=== PATIENT | male | born 1985 | race African-American/Black ===

== ENCOUNTER 2018-06-08 23:21 | Inpatient (IN) | payer MEDICAID ==
[~2018-06-08] VITALS: Ht 188 cm; Wt 68.9 kg
[~2018-06-08 23:21] MED LIST: AMLO-512 PO; ASPI-1182 PO; ATOR10TA84 PO; CALC25 PO; FOLI1CAP2 PO; METO50 PO; PHOSLOC PO
[2018-06-09 00:35] LABS: BASOPHILS % (AUTO) 3.4 % (0.0-2.0); EOSINOPHILS % (AUTO) 3.7 % (1.0-6.0); HEMATOCRIT 29.2 % (41-53); HEMOGLOBIN 9.6 g/dL (13.5-17.5); LYMPHOCYTES # (AUTO) 1.8 K/uL (1.0-4.8); LYMPHOCYTES % (AUTO) 22.7 % (22.0-44.0); MEAN CORPUSCULAR HEMOGLOBIN 29.6 pg (26.0-34.0); MEAN CORPUSCULAR HGB CONC 32.7 G/dL (31.0-37.0); MEAN CORPUSCULAR VOLUME 91 fL (80-100); MONOCYTES # (AUTO) 0.7 K/uL (0.1-1.0); NEUTROPHILS # (AUTO) 4.9 K/uL (1.8-7.7); NEUTROPHILS % (AUTO) 61.2 % (40.0-70.0); PLATELET COUNT (AUTO) 427 K/uL (150-450); RED BLOOD CELL COUNT(AUTO) 3.23 MIL/uL (4.50-5.90); RED CELL DISTRIBUTION WIDTH 15.2 % (11.5-14.5)
[2018-06-09 00:49] LABS: ANION GAP 10 mmol/L (8-16); CALCIUM, TOTAL 8.8 mg/dL (8.8-10.5); CARBON DIOXIDE 31 mmol/L (22-29); CHLORIDE 98 mmol/L (98-107); CREATININE 5.76 mg/dL (0.60-1.30); GLOMERULAR FILTR. RATE CALC 14 mL/min (>60); GLUCOSE,RANDOM 82 mg/dL (70-110); POTASSIUM 4.1 mmol/L (3.5-5.1); SODIUM SERUM 139 mmol/L (136-145); UREA NITROGEN, BLOOD 13 mg/dL (7-18)
[2018-06-09 00:50] LABS: LACTIC ACID 0.8 mmol/L (0.4-2.0)
[2018-06-09 00:58] LABS: ALANINE AMINOTRANSFERASE 44 U/L (12-78); ALBUMIN 2.6 g/dL (3.4-5.0); ALKALINE PHOSPHATASE 128 U/L (46-116); ASPARTATE AMINOTRANSFERASE 28 U/L (15-37); BILIRUBIN,TOTAL 0.5 mg/dL (0.1-1.0); LIPASE 186 U/L (73-393); TOTAL PROTEIN, SERUM 6.7 g/dL (6.4-8.2)
[2018-06-09] MEDS ORDERED: LABETALOL HCL 5 MG/ML 20 ML VIAL IVP ONE ×2 (01:00)
[2018-06-09 01:22] LABS: B-TYPE NATRIURETIC PEPTIDE 4140 pg/mL (0-100)
[2018-06-09] MEDS ORDERED: FUROSEMIDE 40 MG/4 ML VIAL IVP ONE (02:00)
[2018-06-09] MEDS ORDERED: 0.9% SODIUM CHLORIDE 10 ML SYRINGE IVP PRN ×2 (02:00→05:45)
[2018-06-09] MEDS ORDERED: ACETAMINOPHEN 325 MG TABLET PO PRN ×2 (02:00→05:45)
[2018-06-09] MEDS ORDERED: ONDANSETRON HCL 4 MG/2 ML VIAL IVP PRN ×2 (02:00→05:45)
[2018-06-09 02:23] LABS: GLUCOSE,POINT OF CARE 87 MG/DL (70-110)
[2018-06-09 03:24] VITALS: BP 152/79
[2018-06-09] MEDS ORDERED: HYDROCODONE/ACETAMINOPHEN 5-325 MG TABLET PO PRN (05:45)
[2018-06-09] MEDS ORDERED: BISACODYL 10 MG RECTAL RECTAL SUPPOSITORY PR PRN (05:45)
[2018-06-09] MEDS ORDERED: MORPHINE SULFATE 2 MG/ML SYRINGE IVP PRN (05:45)
[2018-06-09] MEDS ORDERED: IPRATROPIUM BROMIDE 0.5 MG/2.5 ML NEB SOLUTION NEB PRN (05:45)
[2018-06-09] MEDS ORDERED: ALBUTEROL SULFATE 2.5 MG/0.5 ML NEB SOLUTION NEB PRN (05:45)
[2018-06-09] MEDS ORDERED: HydrALAZINE HCL 20 MG/ML VIAL IVP PRN (06:00)
[2018-06-09 07:27] LABS: BASOPHILS % (AUTO) 3.7 % (0.0-2.0); EOSINOPHILS % (AUTO) 4.1 % (1.0-6.0); HEMATOCRIT 27.2 % (41-53); HEMOGLOBIN 9.1 g/dL (13.5-17.5); LYMPHOCYTES # (AUTO) 1.2 K/uL (1.0-4.8); LYMPHOCYTES % (AUTO) 18.9 % (22.0-44.0); MEAN CORPUSCULAR HEMOGLOBIN 30.4 pg (26.0-34.0); MEAN CORPUSCULAR HGB CONC 33.6 G/dL (31.0-37.0); MEAN CORPUSCULAR VOLUME 90 fL (80-100); MONOCYTES # (AUTO) 0.6 K/uL (0.1-1.0); MONOCYTES % (AUTO) 9.3 % (2.0-9.0); NEUTROPHILS # (AUTO) 4.2 K/uL (1.8-7.7); PLATELET COUNT (AUTO) 383 K/uL (150-450); RED BLOOD CELL COUNT(AUTO) 3.01 MIL/uL (4.50-5.90); RED CELL DISTRIBUTION WIDTH 15.3 % (11.5-14.5)
[2018-06-09 07:38] LABS: ALBUMIN 2.5 g/dL (3.4-5.0); BILIRUBIN,TOTAL 0.3 mg/dL (0.1-1.0); CALCIUM, TOTAL 8.5 mg/dL (8.8-10.5); CHOL/HDL RATIO 2.1 (4.2-7.3); CREATININE 6.78 mg/dL (0.60-1.30); TOTAL PROTEIN, SERUM 6.1 g/dL (6.4-8.2)
[2018-06-09 07:41] LABS: POTASSIUM 6.1 mmol/L (3.5-5.1)
[2018-06-09 08:02] VITALS: BP 155/95
[2018-06-09] MEDS: CALCIUM ACETATE 667 MG CAPSULE PO SCH (08:23)
[2018-06-09] MEDS: HEPARIN SODIUM,PORCINE 5,000 UNITS/ML VIAL SQ SCH ×2 (08:24→20:57)
[2018-06-09] MEDS: ATORVASTATIN CALCIUM 10 MG TABLET PO SCH (08:24)
[2018-06-09] MEDS: PANTOPRAZOLE SODIUM 40 MG DR TABLET PO SCH (08:24)
[2018-06-09] MEDS: ASPIRIN 81 MG CHEWABLE TABLET PO SCH (08:24)
[2018-06-09] MEDS: VITAMIN B COMP/VIT C/FOLIC ACID CAPSULE PO SCH (08:24)
[2018-06-09] MEDS: AmLODIPine BESYLATE 10 MG TABLET PO SCH (08:24)
[2018-06-09 08:55] LABS: ABG A-A DIFF O2 54.8 mmHg (10-20.0); ABG BASE EXCESS 7.3 mmol/L (-2.0-3.0); ABG CARBOXYHEMOGLOBIN 0.6 % (0.0-1.5); ABG HCO3 30.6 mmol/L (22.0-26.0); ABG OXYGEN CONTENT 14.6 mL/dL (15.0-23.0); ABG OXYGEN SATURATION 97.5 % (95.0-98.0); ABG OXYHEMOGLOBIN 96.9 % (94.0-100.0); ABG PCO2 40 mmHg (35-45); ABG PH 7.496 (7.350-7.450); ABG TOTAL HEMOGLOBIN 10.6 G/dL (12.0-18.0); PO2, ARTERIAL BG 97.6 mmHg (92.0-100.0); SOURCE, BLOOD GAS ARTERIAL; TEMPERATURE, FAHRENHEIT, BG 97.6 FAHREN (96.0-98.6)
[2018-06-09 08:56] LABS: O2 DEVICE,BLOOD GAS CANNULA (ROOM AIR); SITE, BLOOD GAS RT RADIAL
[2018-06-09] MEDS ORDERED: EPOETIN ALFA 10,000 UNITS/ML VIAL SQ SCH (09:00)
[2018-06-09] MEDS ORDERED: 0.9% SODIUM CHLORIDE 5 ML NEB SOLUTION NEB ONE (09:00)
[2018-06-09] MEDS: CALCITRIOL 0.25 MCG CAPSULE PO SCH (09:00)
[2018-06-09] MEDS ORDERED: SODIUM CHLORIDE 0.9% 2,000 ML IV ONE (10:25)
[2018-06-09 11:42] VITALS: BP 154/108
[2018-06-09] MEDS: METOPROLOL TARTRATE 50 MG TABLET PO SCH ×2 (15:22→20:57)
[2018-06-09 16:12] VITALS: BP 153/90
[2018-06-09] MEDS ORDERED: HEPARIN SODIUM,PORCINE 1,000 UNITS/ML VIAL IVP ONE ×2 (16:28→16:30)
[2018-06-09 19:33] VITALS: BP 146/79
[2018-06-09] MEDS ORDERED: SODIUM CHLORIDE 0.9% 100 ML ONE (21:58)
[2018-06-09] MEDS ORDERED: IOVERSOL 320 MG/ML 100 ML VIAL ONE (21:58)
[2018-06-10] VITALS (7 sets, daily range): BP systolic 118–154; BP diastolic 73–108
[2018-06-10 06:30] LABS: BASOPHILS % (AUTO) 4.5 % (0.0-2.0); EOSINOPHILS % (AUTO) 9.5 % (1.0-6.0); HEMATOCRIT 31.7 % (41-53); HEMOGLOBIN 10.6 g/dL (13.5-17.5); LYMPHOCYTES # (AUTO) 1.3 K/uL (1.0-4.8); MEAN CORPUSCULAR HEMOGLOBIN 30.4 pg (26.0-34.0); MEAN CORPUSCULAR HGB CONC 33.6 G/dL (31.0-37.0); MEAN CORPUSCULAR VOLUME 91 fL (80-100); MONOCYTES # (AUTO) 0.9 K/uL (0.1-1.0); MONOCYTES % (AUTO) 14.8 % (2.0-9.0); NEUTROPHILS # (AUTO) 3.2 K/uL (1.8-7.7); NEUTROPHILS % (AUTO) 51.2 % (40.0-70.0); PLATELET COUNT (AUTO) 394 K/uL (150-450); RED CELL DISTRIBUTION WIDTH 15.2 % (11.5-14.5)
[2018-06-10 06:45] LABS: CALCIUM, TOTAL 8.6 mg/dL (8.8-10.5); CREATININE 6.8 mg/dL (0.60-1.30); MAGNESIUM 1.8 mg/dL (1.80-2.40); PHOSPHORUS 4.6 mg/dL (2.5-4.9); POTASSIUM 4.5 mmol/L (3.5-5.1)
[2018-06-10] MEDS: AmLODIPine BESYLATE 10 MG TABLET PO SCH (08:09)
[2018-06-10] MEDS: VITAMIN B COMP/VIT C/FOLIC ACID CAPSULE PO SCH (08:09)
[2018-06-10] MEDS: PANTOPRAZOLE SODIUM 40 MG DR TABLET PO SCH (08:09)
[2018-06-10] MEDS: HEPARIN SODIUM,PORCINE 5,000 UNITS/ML VIAL SQ SCH ×2 (08:09→20:32)
[2018-06-10] MEDS: ASPIRIN 81 MG CHEWABLE TABLET PO SCH (08:09)
[2018-06-10] MEDS: CALCITRIOL 0.25 MCG CAPSULE PO SCH (08:09)
[2018-06-10] MEDS: ATORVASTATIN CALCIUM 10 MG TABLET PO SCH (08:09)
[2018-06-10] MEDS: METOPROLOL TARTRATE 50 MG TABLET PO SCH ×2 (08:09→20:32)
[2018-06-10] MEDS: CALCIUM ACETATE 667 MG CAPSULE PO SCH (08:09)
[2018-06-10] MEDS: HydrALAZINE HCL 25 MG TABLET PO SCH ×2 (16:44→20:32)
[2018-06-11 04:29] VITALS: BP 155/97
[2018-06-11 07:12] VITALS: BP 145/85
[2018-06-11 07:19] LABS: EOSINOPHILS % (AUTO) 10.7 % (1.0-6.0); HEMATOCRIT 32.8 % (41-53); HEMOGLOBIN 10.9 g/dL (13.5-17.5); LYMPHOCYTES # (AUTO) 1.2 K/uL (1.0-4.8); MEAN CORPUSCULAR HGB CONC 33.3 G/dL (31.0-37.0); MEAN CORPUSCULAR VOLUME 90 fL (80-100); MONOCYTES # (AUTO) 0.7 K/uL (0.1-1.0); MONOCYTES % (AUTO) 13.4 % (2.0-9.0); NEUTROPHILS # (AUTO) 2.5 K/uL (1.8-7.7); NEUTROPHILS % (AUTO) 46.8 % (40.0-70.0); PLATELET COUNT (AUTO) 381 K/uL (150-450); RED BLOOD CELL COUNT(AUTO) 3.65 MIL/uL (4.50-5.90); RED CELL DISTRIBUTION WIDTH 15.2 % (11.5-14.5)
[2018-06-11 07:21] LABS: BASOPHILS % (AUTO) 4.4 % (0.0-2.0)
[2018-06-11 07:25] LABS: CALCIUM, TOTAL 8.8 mg/dL (8.8-10.5); CREATININE 10.1 mg/dL (0.60-1.30); POTASSIUM 4.5 mmol/L (3.5-5.1)
[2018-06-11 07:31] LABS: ALBUMIN 2.7 g/dL (3.4-5.0); BILIRUBIN,TOTAL 0.3 mg/dL (0.1-1.0); TOTAL PROTEIN, SERUM 6.6 g/dL (6.4-8.2)
[2018-06-11] MEDS: CALCIUM ACETATE 667 MG CAPSULE PO SCH (08:00)
[2018-06-11] MEDS: ASPIRIN 81 MG CHEWABLE TABLET PO SCH (08:50)
[2018-06-11] MEDS: PANTOPRAZOLE SODIUM 40 MG DR TABLET PO SCH (08:50)
[2018-06-11] MEDS: HEPARIN SODIUM,PORCINE 5,000 UNITS/ML VIAL SQ SCH ×2 (08:50→20:13)
[2018-06-11] MEDS: CALCITRIOL 0.25 MCG CAPSULE PO SCH (09:00)
[2018-06-11] MEDS: HydrALAZINE HCL 25 MG TABLET PO SCH ×3 (09:00→20:13)
[2018-06-11] MEDS: ATORVASTATIN CALCIUM 10 MG TABLET PO SCH (09:00)
[2018-06-11] MEDS: AmLODIPine BESYLATE 10 MG TABLET PO SCH (09:00)
[2018-06-11] MEDS: METOPROLOL TARTRATE 50 MG TABLET PO SCH ×2 (09:00→20:13)
[2018-06-11] MEDS: VITAMIN B COMP/VIT C/FOLIC ACID CAPSULE PO SCH (09:00)
[2018-06-11 11:16] VITALS: BP 143/90
[2018-06-11] MEDS ORDERED: HEPARIN SODIUM,PORCINE 1,000 UNITS/ML VIAL IVP ONE ×3 (12:00→16:45)
[2018-06-11 15:33] VITALS: BP 155/96
[2018-06-11] MEDS ORDERED: SODIUM CHLORIDE 0.9% 2,000 ML IV ONE (16:11)
[2018-06-11] MEDS ORDERED: MANNITOL 25%-12.5 GM/50 ML VIAL IVP PRN (16:45)
[2018-06-11 20:18] VITALS: BP 148/78
== END 2018-06-11 21:20 | disposition home or self-care (01) | DRG 190 ==
LOC: EMS 23:22 → 5S 06-09 01:30
PROVIDERS: ADMIT Internal Medicine; ATTEND Internal Medicine
PROC: 5A09357 Assistance with Respiratory Ventilation, Less than 24 Consecutive Hours, Continuous Positive Airway Pressure (ICD-10-PCS; principal; 2018-06-09)
PROC: 5A1D70Z Performance of Urinary Filtration, Intermittent, Less than 6 Hours Per Day (ICD-10-PCS; 2018-06-09)
PROC: 5A09357 Assistance with Respiratory Ventilation, Less than 24 Consecutive Hours, Continuous Positive Airway Pressure (ICD-10-PCS; 2018-06-10)
PROC: 5A1D70Z Performance of Urinary Filtration, Intermittent, Less than 6 Hours Per Day (ICD-10-PCS; 2018-06-11)
DX: I21.4 Non-ST elevation (NSTEMI) myocardial infarction (principal); J96.90 Respiratory failure, unspecified, unspecified whether with hypoxia or hypercapnia; G93.40 Encephalopathy, unspecified; N17.9 Acute kidney failure, unspecified; I13.2 Hypertensive heart and chronic kidney disease with heart failure and with stage 5 chronic kidney disease, or end stage renal disease; J90 Pleural effusion, not elsewhere classified; I42.5 Other restrictive cardiomyopathy; N18.6 End stage renal disease; E87.2 Acidosis; I50.9 Heart failure, unspecified; I20.0 Unstable angina; E87.5 Hyperkalemia; E78.00 Pure hypercholesterolemia, unspecified; D64.9 Anemia, unspecified; E78.5 Hyperlipidemia, unspecified; E83.51 Hypocalcemia; D63.1 Anemia in chronic kidney disease; I16.0 Hypertensive urgency; D72.829 Elevated white blood cell count, unspecified; M62.82 Rhabdomyolysis; Z79.899 Other long term (current) drug therapy; Z99.2 Dependence on renal dialysis; Z79.82 Long term (current) use of aspirin; Z84.89 Family history of other specified conditions
CPT/HCPCS: 71260; 82805; 83605; 83735; 84100; 84145; 87040; 87081; 87340; 93005; 93308; 94640; 94660; 96374; 96375; 96376; 99291; G0480; J0360; J0885; J1644; J1940; J2270; J3490; J7030; J7050